=== PATIENT | female | born 1990 | race Two or more races ===

== ENCOUNTER 2023-12-14 07:41 | Emergency (ER) | payer MEDICAID ==
[~2023-12-14] VITALS: Ht 154.9 cm; Wt 71.0 kg
[2023-12-14 08:47] LABS: Urine Bacteria FEW /hpf (None Seen); Urine Blood TRACE /uL (Negative); Urine Color Yellow (Yellow); Urine Protein, UAD TRACE (Negative); Urine Specific Gravity 1.011 (1.001-1.035); Urine Urobilinogen Normal (Negative); Urine WBC 315 /hpf (0 - 5); Urine WBC Clumps PRESENT /hpf (None Seen); Urine pH 6.5 (5.0-9.0)
[2023-12-14 08:48] LABS: Urine Clarity Cloudy (Clear)
[2023-12-14 08:54] LABS: Amphetamine Screen, Urine Pos (NEGATIVE); Barbiturate Scree,Urine Neg (NEGATIVE); Benzodiazephine Screen, Urine Neg (NEGATIVE); Cannabinoid Screen, Urine Neg (NEGATIVE); Cocaine Screen, Urine Neg (NEGATIVE); Opiate Scree,Urine Neg (NEGATIVE); Phencyclidine Screen, Urine Neg (NEGATIVE)
[2023-12-14] MEDS ORDERED: NITR-87 PO (09:07)
[2023-12-14 09:15] VITALS: BP 98/48; PULSE 91; RESP 16; TEMP 98.3; O2SAT 99
== END 2023-12-14 09:48 | disposition home or self-care (01) ==
LOC: ER 07:41
DX: O23.42 Unspecified infection of urinary tract in pregnancy, second trimester (principal); Z3A.19 19 weeks gestation of pregnancy; Z98.890 Other specified postprocedural states; Z79.899 Other long term (current) drug therapy
CPT/HCPCS: 76805; 80307; 81001; 81025